=== PATIENT | female | born 1980 | race Hispanic/Latino ===

== ENCOUNTER 2022-07-06 19:41 | Emergency (ER) | payer OTHER ==
[~2022-07-06] VITALS: Ht 165.1 cm; Wt 73.0 kg
[2022-07-06] MEDS ORDERED: AUGMENTIN 500-1 EACH PO (20:05)
[2022-07-06] MEDS ORDERED: TETANUS/DIPHTHERIA TOX ADULT 0.5 ML SYR IM ONE (20:15)
[2022-07-06 21:05] VITALS: BP 133/81
== END 2022-07-06 21:00 | disposition home or self-care (01) ==
LOC: ER 19:47
DX: S61.452A Open bite of left hand, initial encounter (principal); W54.0XXA Bitten by dog, initial encounter; Y92.89 Other specified places as the place of occurrence of the external cause
CPT/HCPCS: 90714; 99283